=== PATIENT | female | born 1955 | race Caucasian/White ===

== ENCOUNTER 2017-01-19 10:34 | Observation (INO) | payer OTHER ==
[~2017-01-19] VITALS: Ht 160 cm; Wt 113.4 kg
[~2017-01-19 10:34] MED LIST: AMLO5TAB2 PO; ASPI-110 PO; CARV25TA PO; FURO1TAB60 PO; FURO20TA PO; LISI-515 PO; METO2.5T PO; PANT40TA3 PO; POTA10TA2 PO; PRAV20TA2 PO; STOO100C PO; VENTAER INH; VITA20003 PO; WARF-20 PO; WARF-22 PO
[2017-01-19] MEDS ORDERED: ceFAZolin 2 GM PREMIX 50 ML ONE (11:04)
[2017-01-19 11:33] LABS: AUTOMATED NEUTROPHIL # 5.8 TH/MM3 (1.8-7.7); BASOPHIL # 0.1 TH/MM3 (0-0.2); BASOPHIL % 1.3 % (0.0-2.0); EOSINOPHIL % 0.5 % (0.0-4.0); HEMATOCRIT 37.6 % (35.0-46.0); HEMO FLAGS DIFF FINAL; LYMPH % 21.2 % (9.0-44.0); LYMPHOCYTE # 1.8 TH/MM3 (1.0-4.8); MEAN CELL VOLUME 91.3 FL (80.0-100.0); MEAN CORPUSCULAR HEMOGLOBIN 31.5 PG (27.0-34.0); MEAN CORPUSCULAR HGB CONC 34.6 % (32.0-36.0); MONO % 7.3 % (0.0-8.0); NEUT % 69.7 % (16.0-70.0); PLATELET COUNT 277 TH/MM3 (150-450); RED BLOOD COUNT 4.11 MIL/MM3 (4.00-5.30); RED CELL DISTRIBUTION WIDTH 14.4 % (11.6-17.2); WHITE BLOOD COUNT 8.3 TH/MM3 (4.0-11.0)
[2017-01-19 11:58] LABS: POTASSIUM 3.9 MEQ/L (3.5-5.1)
[2017-01-19] MEDS ORDERED: LACTATED RINGER'S 1000 ML INJ 2,000 ML IV ONE (12:00)
[2017-01-19] MEDS ORDERED: NORMOSOL R INJ 1,000 ML IV ONE (12:00)
[2017-01-19] MEDS ORDERED: ONDANSETRON HCL 4 MG/2 ML VIAL IV PUSH ONE (12:00)
[2017-01-19] MEDS ORDERED: ETOMIDATE 20 MG/10 ML VIAL IV PUSH ONE (12:00)
[2017-01-19] MEDS ORDERED: ePHEDrine/NS 25 MG/5 ML SYR IV ONE (12:00)
[2017-01-19] MEDS ORDERED: PHENYLEPH/NS 1000 MCG/10 ML SYR IV ONE (12:00)
[2017-01-19 12:55] LABS: APTT (PATIENT) 26.1 SEC (24.3-30.1); INTERNATIONAL NORMALIZED RATIO 1.1 RATIO; PROTHROMBIN TIME - PATIENT 12.2 SEC (9.8-11.6)
[2017-01-19] MEDS ORDERED: LIDOCAINE 1%/EPINEPHrine 1:100,000 SOLN 30 ML VIAL ONE (13:03)
[2017-01-19] MEDS ORDERED: BUPIVACAINE/EPINEPHRINE 0.25% PF 30 ML VIAL ONE (13:03)
[2017-01-19] MEDS ORDERED: FAMOTIDINE 20 MG/2 ML VIAL ONE (13:11)
[2017-01-19] MEDS ORDERED: MIDAZOLAM HCL 2 MG/2 ML VIAL ONE (13:11)
[2017-01-19] MEDS ORDERED: DEXAMETHASONE SOD PHOS 4 MG/ML VIAL ONE (13:11)
[2017-01-19] MEDS ORDERED: SUGAMMADEX SODIUM 200 MG/2 ML VIAL IV PUSH ONE ×2 (15:01)
[2017-01-19] MEDS ORDERED: ACETAMINOPHEN 1000 MG/100 ML VIAL IV ONE (15:01)
--- NOTE | 2017-01-19 16:47 | HHI.PR ---
Immediate Post Op Note Procedure Date: Jan 19, 2017 Pre Op Diagnosis: incarcerated ventral hernia Post Op Diagnosis: same Surgeon: Lev Hackett MD Last Cleaner(s): see or sheet Procedure: laparoscopic robotic asst ventral hernia repair Findings: incarcerated omentum 3cm neck, large hernia defect 9x6cm Complications: none Specimen(s) removed: hernia sac Estimated blood loss: 15cc Anesthesia: General Drains: None IVF (1400cc) Patient to: PACU Patient Condition: Good Lev Hackett MD Jan 19, 2017 16:47
[2017-01-19] MEDS ORDERED: fentaNYL CITRATE 250 MCG/5 ML AMP ONE (16:57)
[2017-01-19] MEDS ORDERED: DO NOT ADM ANY ANTICOAGULANT DRUGS XX PRN (17:05)
[2017-01-19] MEDS ORDERED: ONDANSETRON HCL 4 MG/2 ML VIAL IV PUSH PRN (17:15)
[2017-01-19] MEDS ORDERED: oxyCODONE/ACETAMINOPHEN 5 MG/325 MG TAB PO PRN (17:15)
[2017-01-19] MEDS ORDERED: *morphine SULFATE 8 MG/ML PERIprocedure ONLY ONE ×2 (17:21→18:19)
[2017-01-19] MEDS ORDERED: SODIUM CHLOR 0.9% 1000 ML INJ 1,000 ML IV SCH (18:58)
--- NOTE | 2017-01-19 18:58 | EKG ---
Date Performed: 01/19/2017 Time Performed: 11:20:09 PTAGE: 61 years EKG: ATRIAL FIBRILLATION WITH ABERRANT CONDUCTION OR VENTRICULAR PREMATURE COMPLEXES INTRAVENTRI CULAR CONDUCTION DELAY LATERAL MYOCARDIAL INFARCTION , OF INDETERMINATE AGE INFERIOR MYOCARDIAL INFAR CTION , OF INDETERMINATE AGE ABNORMAL ECG PREVIOUS TRACING : 09/27/2016 15.33 DOCTOR: Misael Oneill Interpretating Date/Time 01/19/2017 18:56:41
[2017-01-19] MEDS ORDERED: KETOROLAC TROMETHAMINE 30 MG/ML (IVP) VIAL IVP PRN (19:00)
[2017-01-19] MEDS ORDERED: ONDANSETRON HCL 4 MG/2 ML VIAL IV PRN (19:00)
[2017-01-19] MEDS ORDERED: ACETAMINOPHEN/HYDROcodone 325 MG/5 MG TAB PO PRN (19:00)
[2017-01-19] MEDS ORDERED: SODIUM CHLORIDE 0.9% FLUSH 5 ML FLUSH IVF PRN (19:00)
[2017-01-19] MEDS ORDERED: MORPHINE SULFATE 4 MG/ML INJ IV PUSH PRN (19:00)
[2017-01-19] MEDS ORDERED: Post-op Orders (for Pharmacy) MISC XX ONE (19:00)
[2017-01-19 20:00] VITALS: BP 126/68; PULSE 78; RESP 20; TEMP 98.2; O2SAT 99
[2017-01-19] MEDS: ACETAMINOPHEN/HYDROcodone 325 MG/5 MG TAB PO PRN (20:41)
[2017-01-19] MEDS: DOCUSATE SODIUM 100 MG CAP PO SCH (20:42)
[2017-01-19] MEDS: SODIUM CHLORIDE 0.9% FLUSH 5 ML FLUSH IVF SCH (20:47)
[2017-01-19 22:23] VITALS: PULSE 94
[2017-01-20] VITALS: BP 132/88; PULSE 81; RESP 20; TEMP 97.6; O2SAT 97
[2017-01-20 06:31] LABS: AUTOMATED NEUTROPHIL # 9.3 TH/MM3 (1.8-7.7); BASOPHIL % 0.3 % (0.0-2.0); HEMATOCRIT 32.5 % (35.0-46.0); HEMO FLAGS DIFF FINAL; LYMPH % 10.6 % (9.0-44.0); LYMPHOCYTE # 1.2 TH/MM3 (1.0-4.8); MEAN CORPUSCULAR HEMOGLOBIN 32.2 PG (27.0-34.0); MEAN CORPUSCULAR HGB CONC 35.3 % (32.0-36.0); MONO % 7.2 % (0.0-8.0); NEUT % 81.9 % (16.0-70.0); PLATELET COUNT 232 TH/MM3 (150-450); RED BLOOD COUNT 3.57 MIL/MM3 (4.00-5.30); RED CELL DISTRIBUTION WIDTH 14.4 % (11.6-17.2); WHITE BLOOD COUNT 11.4 TH/MM3 (4.0-11.0)
[2017-01-20 07:00] LABS: BICARBONATE 28.7 MEQ/L (21.0-32.0); POTASSIUM 3.6 MEQ/L (3.5-5.1)
[2017-01-20 08:00] VITALS: BP 125/77; PULSE 77; RESP 17; TEMP 87.1; O2SAT 97
[2017-01-20 08:22] VITALS: O2SAT 96
[2017-01-20] MEDS: DOCUSATE SODIUM 100 MG CAP PO SCH (08:36)
[2017-01-20] MEDS: SODIUM CHLORIDE 0.9% FLUSH 5 ML FLUSH IVF SCH (08:37)
[2017-01-20] MEDS ORDERED: ALBUTEROL SULFATE 90 MCG/ACT HFA 8 GM INHALER INH PRN (10:15)
--- NOTE | 2017-01-20 10:25 | PD.CONS ---
[facility] Request[facility] By Reason for Consult medical management Primary Care Physician Non-Staff Diagnoses: History of Present Illness patient is a 61 y/o female with history of CHF, hypertension and atrial fibrillation who was admitted with incarcerated ventral hernia and underwent surgical repair. at the time of my evaluation she was resting in no acute distress, complaining of moderate abdominal pain with no nausea or vomiting. she denies any chest pain or respiratory distress. Review of Systems Constitutional: DENIES: Fever, Weight loss, Chills, Night Sweats Eyes: DENIES: Blurred vision, Diplopia, Vision loss, Double Vision Ears, nose, mouth, throat: DENIES: Tinnitus, Vertigo, Throat pain, Epistaxis Respiratory: DENIES: Apneas, Cough, Snoring, Wheezing, Hemoptysis, Sputum production, Shortness of breath Cardiovascular: DENIES: Chest pain, Palpitations, Syncope, Dyspnea on Exertion , PND, Lower Extremity Edema, Orthopnea, Claudication Gastrointestinal: COMPLAINS OF: Abdominal pain, DENIES: Black stools, Bloody stools, Constipation, Diarrhea, Nausea, Vomiting, Difficulty Swallowing, Anorexia Genitourinary: DENIES: Urinary frequency, Urgency, Hematuria, Dysuria Musculoskeletal: DENIES: Joint pain, Muscle aches, Stiffness, Joint Swelling Integumentary: DENIES: Rash Neurologic: DENIES: Abnormal gait, Headache, Localized weakness, Paresthesias, Seizures, Speech Problems, Tremor, Poor Balance Psychiatric: DENIES: Anxiety, Confusion, Mood changes, Depression, Hallucinations, Agitation, Suicidal Ideation, Homicidal Ideation, Delusions Past Family Social History Allergies: Coded Allergies: No Known Allergies (Verified , 01/19/17) Past Medical History CHF hypertension atrial fibrillation Past Surgical History cardiac cath. Reported Medications lasix Metolazone coreg lisinopril pravastatin cholecaliferol coumadin amlodipine protonix Active Ordered Medications Current Medications Cefazolin Sodium/ Dextrose (Ancef 2 Gm Premix) 50 ml @ As Directed STK-MED ONCE .ROUTE Last administered on 01/19/17 12:35; Start 01/19/17 at 11:04; Stop at 11:05; Status DC Lidocaine/ Epinephrine (Xylocaine-Epi 1%-1:100,000 Inj) 30 ml STK-MED ONCE .ROUTE Last administered on 3/1/17at 14:21; Start 01/19/17 at 13:03; Stop at 13:04; Status DC Bupivacaine HCl/ Epinephrine Bitart (Marcaine-Epi Pf 0.25% Inj) 30 ml STK-MED ONCE .ROUTE Last administered on 01/19/17t 14:21; Start 01/19/17 at 13:03; Stop 01/19/17 at 13:04; Status DC Famotidine (Pepcid Inj) 20 mg STK-MED ONCE .ROUTE ; Start 01/19/17 at 13:11; Stop 01/19/17 at 13:12; Status DC Midazolam HCl (Versed Inj) 2 mg STK-MED ONCE .ROUTE ; Start 01/19/17 at 13:11; Stop 01/19/17 at 13:12; Status DC Dexamethasone Sodium Phosphate (Decadron Inj) 4 mg STK-MED ONCE .ROUTE ; Start 01/19/17 at 13:11; Stop 01/19/17 at 13:12; Status DC Sugammadex Sodium (Bridion Inj) 400 mg STK-MED ONCE IV PUSH ; Start 01/19/17 at 15:01; Stop 01/19/17 at 15:02; Status DC Acetaminophen (Ofirmev Inj) 1,000 mg STK-MED ONCE IV ; Start 01/19/17 at 15:01; Stop 01/19/17 at 15:02; Status DC Fentanyl Citrate (fentaNYL INJ) 250 mcg STK-MED ONCE .ROUTE ; Start 01/19/17 at 16:57; Stop 01/19/17 at 16:58; Status DC Oxycodone/ Acetaminophen (Percocet 5-325 Mg) 2 tab ONCE PRN PO pain 1-5 scale ; Start 01/19/17 at 17:15; Stop 01/19/17 at 23:59; Status DC Ondansetron HCl (Zofran Inj) 4 mg ONCE PRN IV PUSH nausea; Start 01/19/17 at 17: 15; Stop 01/19/17 at 23:59; Status DC Morphine Sulfate (*morphine INJ PERIprocedure ONLY) 8 mg STK-MED ONCE .ROUTE Last administered on 01/19/17 17:21; Start 01/19/17 at 17:21; Stop 01/19/17 at 17: 22; Status DC Miscellaneous Information ALL NURSING DEPARTME... UNSCH PRN XX SEE LABEL COMMENTS; Start 01/19/17 at 17:05; Stop 01/20/17 at 17:04 Morphine Sulfate 8 mg 8 mg STK-MED ONCE .ROUTE Last administered on 01/19/17 18 :19; Start 01/19/17 at 18:19; Stop 01/19/17 at 18:20; Status DC Sodium Chloride (NS 1000 ml Inj) 1,000 ml @ 0 mls/hr Q10H IV ; Start 01/19/17 at 18:58 IV Flush (NS Flush) 2 ml UNSCH PRN IVF FLUSH AFTER USING IV ACCESS; Start at 19:00 IV Flush (NS Flush) 2 ml BID IVF Last administered on 01/20/17 08:37; Start 01/19/17 at 21:00 Ketorolac Tromethamine (Toradol Inj) 15 mg Q6H PRN IVP PAIN SCALE 1 TO 5 Last administered on 01/20/17 08:37; Start 01/19/17 at 19:00; Stop 01/24/17 at 18:59 Acetaminophen/ Hydrocodone Bitart (Ridgeway 5-325 Mg) 1 tab Q4H PRN PO PAIN SCALE 1 TO 5; Start 01/19/17 at 19:00 Acetaminophen/ Hydrocodone Bitart (Ridgeway 5-325 Mg) 2 tab Q4H PRN PO PAIN SCALE 6 TO 10 Last administered on 01/19/17 20:41; Start 01/19/17 at 19:00 Morphine Sulfate (Morphine Inj) 2 mg Q2H PRN IV PUSH BREAKTHROUGH PAIN; Start 01/19/17 at 19:00 Ondansetron HCl (Zofran Inj) 4 mg Q4H PRN IV NAUSEA OR VOMITING; Start 01/19/17 at 19:00 Docusate Sodium 100 mg 100 mg BID PO Last administered on 01/20/17 08:36; Start 01/19/17 at 21:00 Cefazolin Sodium/ Sodium Chloride (Ancef Inj/NS Inj) 100 ml @ 200 mls/hr Q8H IV Last administered on 01/20/17 04:55; Start 01/19/17 at 20:00; Stop 01/20/17 at 12:29 Miscellaneous Information (Post-op Orders (for Pharmacy)) STAT ONCE XX ; Start 01/19/17 at 19:00; Stop 01/19/17 at 19:11; Status DC Family History CAD in sister. Social History no smoking or drinking. Physical Exam Vital Signs Vital Signs Date Time Temp Pulse Resp B/P Pulse Ox O2 Delivery O2 Flow Rate FiO2 01/20/17 09:37 17 01/20/17 08:33 Room Air 01/20/17 08:22 96 01/20/17 08:00 87.1 77 17 125/77 97 01/20/17 00:00 97.6 81 20 132/88 97 01/19/17 22:23 94 01/19/17 20:31 99 Nasal Cannula 2.00 01/19/17 20:00 97 18 113/71 99 Nasal Cannula 2 01/19/17 20:00 98.2 78 20 126/68 99 01/19/17 19:30 90 18 112/74 99 Nasal Cannula 2 01/19/17 19:00 97 22 118/76 97 Nasal Cannula 2 01/19/17 18:45 92 22 121/80 98 Nasal Cannula 2 01/19/17 18:30 98 22 117/84 99 Nasal Cannula 2 01/19/17 18:15 89 22 122/82 99 Nasal Cannula 2 01/19/17 18:00 88 22 119/80 99 Nasal Cannula 2 01/19/17 17:45 101 22 119/73 99 Nasal Cannula 2 01/19/17 17:30 96 22 120/77 99 Nasal Cannula 2 01/19/17 17:05 98.8 95 22 114/67 97 Nasal Cannula 4 Physical Exam GENERAL: This is a well-nourished, well-developed patient, in no apparent distress. SKIN: No rashes, ecchymoses or lesions. Cool and dry. HEAD: Atraumatic. Normocephalic. No temporal or scalp tenderness. EYES: Pupils equal round and reactive. Extraocular motions intact. No scleral icterus. No injection or drainage. ENT: Nose without bleeding, purulent drainage or septal hematoma. Throat without erythema, tonsillar hypertrophy or exudate. Uvula midline. Airway patent. NECK: Trachea midline. No JVD or lymphadenopathy. Supple, nontender, no meningeal signs. CARDIOVASCULAR: Regular rate and rhythm without murmurs, gallops, or rubs. RESPIRATORY: Clear to auscultation. Breath sounds equal bilaterally. No wheezes , rales, or rhonchi. GASTROINTESTINAL: Abdomen soft, non-tender, covered with clean dressing. MUSCULOSKELETAL: Extremities without clubbing, cyanosis, or edema. No joint tenderness, effusion, or edema noted. No calf tenderness. Negative Homans sign bilaterally. NEUROLOGICAL: Awake and alert. Cranial nerves II through XII intact. Motor and sensory grossly within normal limits. Five out of 5 muscle strength in all muscle groups. Normal speech. Laboratory Laboratory Tests Test 01/19/17 01/19/17 01/19/17 01/20/17 11:15 12:34 14:08 05:28 White Blood Count 8.3 11.4 Red Blood Count 4.11 3.57 Hemoglobin 13.0 11.5 Hematocrit 37.6 32.5 Mean Corpuscular Volume 91.3 91.0 Mean Corpuscular Hemoglobin 31.5 32.2 Mean Corpuscular Hemoglobin 34.6 35.3 Concent Red Cell Distribution Width 14.4 14.4 Platelet Count 277 232 Mean Platelet Volume 8.4 8.6 Neutrophils (%) (Auto) 69.7 81.9 Lymphocytes (%) (Auto) 21.2 10.6 Monocytes (%) (Auto) 7.3 7.2 Eosinophils (%) (Auto) 0.5 0.0 Basophils (%) (Auto) 1.3 0.3 Neutrophils # (Auto) 5.8 9.3 Lymphocytes # (Auto) 1.8 1.2 Monocytes # (Auto) 0.6 0.8 Eosinophils # (Auto) 0.0 0.0 Basophils # (Auto) 0.1 0.0 CBC Comment DIFF FINAL DIFF FINAL Differential Comment Sodium Level 138 140 Potassium Level 3.9 3.6 Chloride Level 101 101 Carbon Dioxide Level 29.0 28.7 Anion Gap 8 10 Blood Urea Nitrogen 50 44 Creatinine 1.57 1.53 Estimat Glomerular Filtration 34 35 Rate Random Glucose 111 95 Calcium Level 9.4 8.7 Prothrombin Time 12.2 Prothromb Time International 1.1 Ratio Activated Partial 26.1 Thromboplast Time Blood Type O POSITIVE Antibody Screen NEGATIVE Blood Bank Comment Result Diagram: 01/20/1728 01/20/17527 Imaging EKG; atrial fibrillation Assessment and Plan Assessment and Plan A/P - incarcerated Ventral hernia- s/p surgical repair continue pain control- management per surgery. -CHF-chronic systolic- compensated; continue home meds; lasix, BB and lisinopril -hypertension; resume home meds; BB, lisinopril - hold amlodipine for now -atrial fibrillation- rate controlled- resume BB- resume coumadin when ok with surgery -chronic renal insufficiency; will monitor - -DVT prophylaxis; per surgery; resume coumadin when ok with surgery. thank you for the consult. Discussed Condition With the patient and the RN. Cinthia Gonzalez MD Jan 20, 2017 10:25
[2017-01-20] MEDS: ACETAMINOPHEN/HYDROcodone 325 MG/5 MG TAB PO PRN ×3 (10:29→18:55)
[2017-01-20 12:00] VITALS: BP 105/53; PULSE 91; RESP 17; TEMP 99.2; O2SAT 94
[2017-01-20 16:00] VITALS: BP 118/68; PULSE 97; RESP 17; TEMP 97.2; O2SAT 90
[2017-01-20 16:02] VITALS: RESP 16
--- NOTE | 2017-01-20 16:32 | HHI.PR ---
Subjective Subjective Notes Resting in bed Feels hungry Objective Vitals/I&O Vital Signs Date Time Temp Pulse Resp B/P Pulse Ox O2 Delivery O2 Flow Rate FiO2 01/20/17 16:02 16 01/20/17 16:00 97.2 97 118/68 90 01/20/17 08:33 Room Air 01/19/17 20:31 2.00 Labs Laboratory Tests Test 01/20/17 05:28 White Blood Count 11.4 Red Blood Count 3.57 Hemoglobin 11.5 Hematocrit 32.5 Mean Corpuscular Volume 91.0 Mean Corpuscular Hemoglobin 32.2 Mean Corpuscular Hemoglobin 35.3 Concent Red Cell Distribution Width 14.4 Platelet Count 232 Mean Platelet Volume 8.6 Neutrophils (%) (Auto) 81.9 Lymphocytes (%) (Auto) 10.6 Monocytes (%) (Auto) 7.2 Eosinophils (%) (Auto) 0.0 Basophils (%) (Auto) 0.3 Neutrophils # (Auto) 9.3 Lymphocytes # (Auto) 1.2 Monocytes # (Auto) 0.8 Eosinophils # (Auto) 0.0 Basophils # (Auto) 0.0 CBC Comment DIFF FINAL Differential Comment Sodium Level 140 Potassium Level 3.6 Chloride Level 101 Carbon Dioxide Level 28.7 Anion Gap 10 Blood Urea Nitrogen 44 Creatinine 1.53 Estimat Glomerular Filtration 35 Rate Random Glucose 95 Calcium Level 8.7 Cardiovascular: Regular Lungs: Clear Abdomen: Other (obese abdomen; robotic lap sites c/d/i ; tender at incision sites ) Extremities: No edema A/P Assessment and Plan 61 year old female POD1 robotic ventral hernia repair -Start regular diet -OOB and mobilize -Pain control -Abd binder Attending Statement pt seen at bedside c/o pain but better with meds no fevers oob reg diet d/c planning Attestation The exam, history, and the medical decision-making described in the above note were completed with the assistance of the mid-level provider. I reviewed and agree with the findings presented. I attest that I had a [id number] encounter with the patient on the same day, and personally performed and documented my assessment and findings in the medical record. Mili Mcdowell Jan 20, 2017 16:32 Lev Hackett MD Feb 01, 2017 05:25
[2017-01-20] MEDS ORDERED: POTASSIUM CHLORIDE 10 MEQ CONTROLLED RELEASE TAB PO SCH (21:00)
[2017-01-20] MEDS ORDERED: PRAVASTATIN SOD 20 MG TAB PO SCH (21:00)
[2017-01-20] MEDS ORDERED: CARVEDILOL 3.125 MG TAB PO SCH (21:00)
[2017-01-20] MEDS ORDERED: FUROSEMIDE 20 MG TAB PO SCH (21:00)
[2017-01-21] MEDS ORDERED: LISINOPRIL 5 MG TAB PO SCH (09:00)
[2017-01-21] MEDS ORDERED: FUROSEMIDE 40 MG TAB PO SCH (09:00)
--- NOTE | 2017-01-26 10:35 | MP ---
cc: NAOMI HACKETT MD DATE OF SURGERY: 01/19/2017 PREOPERATIVE DIAGNOSIS Incarcerated ventral hernia. POSTOPERATIVE DIAGNOSIS Incarcerated ventral hernia. PROCEDURE PERFORMED Laparoscopic robotic-assisted ventral hernia repair with underlay mesh. SURGEON Dr. Naomi Hackett INVENTORY CONTROL CLERK See OR sheet ANESTHESIA General endotracheal. IV FLUIDS 1400 cc. URINE OUTPUT 950 cc. ESTIMATED BLOOD LOSS 15 cc. DRAINS None. COMPLICATIONS None. WOUND CLASSIFICATION Clean. FINDINGS Incarcerated ventral hernia with omentum. Good hemostasis. SPECIMEN Hernia sac. INDICATION The patient is a 61-year-old female with several medical issues and obesity who presents with chronic longstanding ventral hernia that was incarcerated with omentum. The patient complained of increased pain and some distension. CT evaluation showing a 3 cm neck x large hernia defect approximately 9 x 6 cm hernia. The decision was made for operative intervention including laparoscopic robotic repair of incisional hernia. Discussed with the patient in detail. The patient agreed and would like to proceed. DETAILS OF PROCEDURE The patient was taken to the operating suite, placed in supine position. She was prepped and draped in the usual sterile fashion after induction of general endotracheal anesthesia. A brief timeout was done stating the correct patient, procedure and surgical site. The patient was positioned. The bed was reclined approximately 10 degrees. The right arm was tucked and secured with a knee immobilizer. Attention was directed to the right upper quadrant. A small stab katheryn incision was made with an 11 blade. A Veress needle obtained was placed intra-abdominally. Saline drop test confirmed intra-abdominal placement. The abdomen was insufflated to 15 mmHg pneumoperitoneum. The Veress needle was traded for a 5 mm trocar. The 5 mm trocar was introduced. On cursory inspection there was no evidence of injury. There was noted to be isolated incarcerated ventral hernia with omentum contained within the hernia sac. Two other trocars were placed, one 12 mm right-sided port followed by a right lower quadrant 8 mm port. The 5 mm port was traded for an 8 mm right upper quadrant port and the robot arms were docked. With the use of bipolar and monopolar endoshears the falciform was taken down. This was done for adequate purchase of mesh. The hernia sac was then reduced. Gentle traction was done to the omentum and Bovie cautery was used to serially dissect and bring the omentum back intra-abdominally. Once we did this and were satisfied with this attention was directed to the hernia sac itself. The hernia sac was completely dissected out and was looped as well. The hernia sac and a small piece of omentum were removed and sent for pathology. Next, the primary hernia defect was then closed in a running fashion with a #1 V-Loc H&H suture. This was done in two layers. After good apposition the pneumoperitoneum was decreased down to 11 mmHg. Next, a Parietex mesh was obtained, 15 x 10 cm, in order to give appropriate overlap and overlay and adequate measurements. The Parietex mesh was secured and a running 12 inch Stratafix 2-0 was used with an SH needle. One 12 inch and two of the smaller length Stratafix were used for a total of three to use around the perimeter of the Parietex mesh. The Parietex mesh was DualMesh. Once we were satisfied with this and the mesh lay flat in place completely covering the hernia defect, hemostasis was obtained. The abdomen was then desufflated. Trocars were removed. The 12 mm trocar was closed prior to removal of the total pneumoperitoneum with a Jey-Lyric suture closure device with 0 Vicryl suture. Next, local anesthetic was injected at all port sites. The port sites were closed with Monocryl subcuticular sutures. Next, sterile dressings were placed. An abdominal binder was placed. The patient tolerated the procedure well. There were no intraoperative complications. Prior to completion the robot arms were undocked of course. Lap and instrument counts were correct. The patient was extubated and taken stable to the PACU. MD KAROLYN Dumont/JACK /6:47 PM /10:09 AM RODERICK
== END 2017-01-20 19:27 | disposition home or self-care (01) ==
LOC: HSDC 10:34 → HSDI 19:01 → N07A 20:16
PROVIDERS: ADMIT Surgery; ATTEND Surgery
DX: K43.6 Other and unspecified ventral hernia with obstruction, without gangrene (principal); I50.9 Heart failure, unspecified; I48.91 Unspecified atrial fibrillation; N18.9 Chronic kidney disease, unspecified; Z79.01 Long term (current) use of anticoagulants; E66.9 Obesity, unspecified; I12.9 Hypertensive chronic kidney disease with stage 1 through stage 4 chronic kidney disease, or unspecified chronic kidney disease
CPT/HCPCS: 00752; 49653; 80048; 85025; 85610; 85730; 86850; 86900; 86901; 88302; 93005; 94150; G0378; J0131; J0690; J1100; J1885; J2250; J2270; J2370; J2405; J3010; J7120

== ENCOUNTER 2017-01-29 07:20 | Inpatient (IN) | payer OTHER, MEDICARE ==
[~2017-01-29] VITALS: Ht 160 cm; Wt 111.6 kg
[2017-01-29 07:25] VITALS: BP 170/92; PULSE 88; RESP 20; TEMP 97.9; O2SAT 94
[2017-01-29 07:49] VITALS: BP 125/60; PULSE 99; RESP 16; O2SAT 96
--- NOTE | 2017-01-29 08:00 | PD ---
HPI Chief Complaint: GI Complaint Time Seen by Provider: 07:54 Travel History International Travel<30 days: No Contact w/Intl Traveler<30days: No Traveled to known affect area: No History of Present Illness HPI 61-year-old female with history of CHF, A. fib, on Coumadin, had umbilical hernia repair done by Dr. Hackett 10 days ago, presents to the ER today because she states that last night she started having dark blood in her stools, and has been having nausea. She states that she was concerned because she is on Coumadin. She has had no history of GI bleeding in the past. She denies any chest pains, shortness of breath, abdominal pains, or any other symptoms. Modifying Factors: None Associated Signs & Symptoms: Blood in the stools, on Coumadin Risk Factors: On Coumadin, recent surgery PFSH Past Medical History Hx Anticoagulant Therapy: Yes (Warfarin) Arthritis: Yes Asthma: Yes Autoimmune Disease: No Blood Disorders: No Anxiety: No Depression: No Cancer: No Cardiac Catheterization: Yes (OCT 2011, NO STENT) Cardiovascular Problems: Yes Chemotherapy: No Congestive Heart Failure: Yes Cerebrovascular Accident: No Diabetes: No Diminished Hearing: No Endocrine: No Gastrointestinal Disorders: Yes Genitourinary: Yes (STRESS INCONTINENCE) Hiatal Hernia: No Hypertension: Yes Immune Disorder: No Neurologic: No Psychiatric: No Reproductive: No Respiratory: No Immunizations Current: Yes Thyroid Disease: No Tetanus Vaccination: Unknown Menopausal: Yes Past Surgical History Abdominal Surgery: Yes (INCARCERATED VENTRAL HERNIA 01/19/17) AICD: No Arteriovenous Shunt: No Hysterectomy: No Insulin Pump: No Joint Replacement: No Pacemaker: No Thoracic Surgery: No Social History Alcohol Use: No Tobacco Use: No Substance Use: No Allergies-Medications (Allergen,Severity, Reaction): Coded Allergies: No Known Allergies (Verified , 01/29/17) Reported Meds & Prescriptions Reported Meds & Active Scripts Active Carvedilol 25 Mg Tab 25 Mg PO TID Reported Metolazone 2.5 Mg Tab 2.5 Mg PO DAILY Furosemide 20 Mg Tab 20 Mg PO HS Warfarin 10 Mg Tab 7 Mg PO WED Warfarin 4 Mg Tab 8 Mg PO ,, Vitamin D (Cholecalciferol) 2,000 Unit Tab 2,000 Units PO DAILY Stool Softener (Docusate Sodium) 100 Mg Cap 100 Mg PO HS Aspirin 81 (Aspirin) 81 Mg Tabdr 81 Mg PO DAILY Ventolin Hfa 18 GM Inh (Albuterol Sulfate) 90 Mcg/Act Aer 1-2 Puff INH Q4H PRN Amlodipine (Amlodipine Besylate) 5 Mg Tab 2.5 Mg PO BID Lasix (Furosemide) 40 Mg Tab 40 Mg PO DAILY Lisinopril 20 Mg Tab 20 Mg PO BID Pantoprazole (Pantoprazole Sodium) 40 Mg Tab 40 Mg PO DAILY Potassium Chloride ER (Potassium Chloride) 10 Meq Tab 10 Meq PO BID Pravastatin 20 Mg Tab 20 Mg PO DAILY Review of Systems Except as stated in HPI: all other systems reviewed are Neg Physical Exam Narrative GENERAL: Well-developed elderly white female patient not in acute distress. Awake, alert, oriented 3. SKIN: Warm and dry. HEAD: Atraumatic. Normocephalic. EYES: Pupils equal and round. No scleral icterus. No injection or drainage. ENT: No nasal bleeding or discharge. Mucous membranes pink and moist. NECK: Trachea midline. No JVD. CARDIOVASCULAR: Regular rate and rhythm. No murmur appreciated. RESPIRATORY: No accessory muscle use. Clear to auscultation. Breath sounds equal bilaterally. GASTROINTESTINAL: Abdomen soft, obese, non-tender, nondistended. Hepatic and splenic margins not palpable. Laparoscopic incisions look clean, dry, intact. RECTAL EXAM: No masses or tenderness, stool is dark brown, Hemoccult positive. MUSCULOSKELETAL: No obvious deformities. No clubbing. No cyanosis. No edema. NEUROLOGICAL: Awake and alert. No obvious cranial nerve deficits. Motor grossly within normal limits. Normal speech. PSYCHIATRIC: Appropriate mood and affect; insight and judgment normal. Data Data Last Documented VS Vital Signs Date Time Temp Pulse Resp B/P Pulse Ox O2 Delivery O2 Flow Rate FiO2 01/29/17 09:00 88 16 120/80 100 Room Air 01/29/17 07:25 97.9 Orders Complete Blood Count With Diff (01/29/17 07:44) Basic Metabolic Panel (Bmp) (01/29/17 07:44) Prothrombin Time / Inr (Pt) (01/29/17 07:44) Act Partial Throm Time (Ptt) (01/29/17 07:44) Albuterol Hfa Inh (Proair Hfa Inh) (01/29/17 09:30) Carvedilol (Coreg) (01/29/17 13:00) Docusate Sodium (Colace) (01/29/17 21:00) Pravastatin (Pravachol) (01/30/17 09:00) Place In Observation (01/29/17 ) Vital Signs (Adult) Q4H (01/29/17:27) Activity Oob With Assistance (01/29/17:) Artificial Breast Fabricator / Telemetry .CONTINUOUS (01/29/17:) Intake + Output ARTI.QSHIFT (01/29/17:) Diet Clear Liquid (01/29/17 Breakfast) Sodium Chlor 0.9% 1000 Ml Inj (Ns 1000 M (01/29/17:27) Sodium Chloride 0.9% Flush (Ns Flush) (01/29/17:30) Sodium Chloride 0.9% Flush (Ns Flush) (01/29/17 21:00) Acetaminophen (Tylenol) (01/29/17 09:30) Ondansetron Inj (Zofran Inj) (01/29/17 09:30) Bisacodyl Supp (Dulcolax Supp) (01/29/17 09:30) Sennosides (Senokot) (01/29/17 09:30) Basic Metabolic Panel (Bmp) (01/30/17 06:00) Complete Blood Count With Diff (01/30/17 06:00) Prothrombin Time / Inr (Pt) (01/30/17 06:00) Resp Oxygen Negro C Titrat 1-4 L (01/29/17 ) Case Management Consult (01/29/17:) Scd Bilateral/Knee High ARTI.BID (01/29/17:) Acetaminophen (Tylenol) (01/29/17 09:30) Naloxone Inj (Narcan Inj) (01/29/17 09:30) Admit Order (Ed Use Only) (01/29/17 09:29) Labs Laboratory Tests Test 01/29/17 07:55 White Blood Count 7.0 TH/MM3 Red Blood Count 3.68 MIL/MM3 Hemoglobin 12.0 GM/DL Hematocrit 34.8 % Mean Corpuscular Volume 94.4 FL Mean Corpuscular Hemoglobin 32.6 PG Mean Corpuscular Hemoglobin 34.6 % Concent Red Cell Distribution Width 14.4 % Platelet Count 271 TH/MM3 Mean Platelet Volume 8.5 FL Neutrophils (%) (Auto) 66.8 % Lymphocytes (%) (Auto) 21.2 % Monocytes (%) (Auto) 8.0 % Eosinophils (%) (Auto) 3.3 % Basophils (%) (Auto) 0.7 % Neutrophils # (Auto) 4.7 TH/MM3 Lymphocytes # (Auto) 1.5 TH/MM3 Monocytes # (Auto) 0.6 TH/MM3 Eosinophils # (Auto) 0.2 TH/MM3 Basophils # (Auto) 0.1 TH/MM3 CBC Comment DIFF FINAL Differential Comment Prothrombin Time 20.1 SEC Prothromb Time International 1.8 RATIO Ratio Activated Partial 31.5 SEC Thromboplast Time Sodium Level 137 MEQ/L Potassium Level 3.8 MEQ/L Chloride Level 99 MEQ/L Carbon Dioxide Level 28.3 MEQ/L Anion Gap 10 MEQ/L Blood Urea Nitrogen 76 MG/DL Creatinine 2.65 MG/DL Estimat Glomerular Filtration 18 ML/MIN Rate Random Glucose 105 MG/DL Calcium Level 9.2 MG/DL [facility] Medical Decision Making Medical Screen Exam Complete: Yes Emergency Medical Condition: Yes Medical Record Reviewed: Yes Interpretation(s) Laboratory Tests Test 01/29/17 07:55 Red Blood Count 3.68 MIL/MM3 (4.00-5.30) Hematocrit 34.8 % (35.0-46.0) Prothrombin Time 20.1 SEC (9.8-11.6) Activated Partial 31.5 SEC Thromboplast Time (24.3-30.1) Blood Urea Nitrogen 76 MG/DL (7-18) Creatinine 2.65 MG/DL (0.50-1.00) Estimat Glomerular Filtration 18 ML/MIN (>89) Rate Differential Diagnosis Hemorrhoidal bleeding versus GI bleeding versus coagulopathy rule out anemia Narrative Course H&H is stable. Vital signs are stable. She is having GI bleeding. INR is elevated. Protonix was given in the ER. Case is discussed with Dr. Aguilar for admission. [facility] Point of Care Internal Pos. & Neg. Controls: Passed Fecal Specimen Occult Blood: Positive Diagnosis Primary Impression: GI bleed Admitting Information Admitting Physician Requests: Admit Amy Atkins MD Jan 29, 2017 08:00
[2017-01-29 08:10] LABS: AUTOMATED NEUTROPHIL # 4.7 TH/MM3 (1.8-7.7); BASOPHIL # 0.1 TH/MM3 (0-0.2); BASOPHIL % 0.7 % (0.0-2.0); EOSINOPHIL # 0.2 TH/MM3 (0-0.4); EOSINOPHIL % 3.3 % (0.0-4.0); HEMATOCRIT 34.8 % (35.0-46.0); HEMO FLAGS DIFF FINAL; LYMPH % 21.2 % (9.0-44.0); LYMPHOCYTE # 1.5 TH/MM3 (1.0-4.8); MEAN CELL VOLUME 94.4 FL (80.0-100.0); MEAN CORPUSCULAR HEMOGLOBIN 32.6 PG (27.0-34.0); MEAN CORPUSCULAR HGB CONC 34.6 % (32.0-36.0); NEUT % 66.8 % (16.0-70.0); PLATELET COUNT 271 TH/MM3 (150-450); RED BLOOD COUNT 3.68 MIL/MM3 (4.00-5.30); RED CELL DISTRIBUTION WIDTH 14.4 % (11.6-17.2)
[2017-01-29 08:21] LABS: APTT (PATIENT) 31.5 SEC (24.3-30.1); INTERNATIONAL NORMALIZED RATIO 1.8 RATIO; PROTHROMBIN TIME - PATIENT 20.1 SEC (9.8-11.6)
[2017-01-29 08:31] LABS: BICARBONATE 28.3 MEQ/L (21.0-32.0); POTASSIUM 3.8 MEQ/L (3.5-5.1)
[2017-01-29 09:00] VITALS: BP 120/80; PULSE 88; RESP 16; O2SAT 100
[2017-01-29] MEDS ORDERED: BISACODYL 10 MG SUPP PR PRN (09:30)
[2017-01-29] MEDS ORDERED: ALBUTEROL SULFATE 90 MCG/ACT HFA 8 GM INHALER INH PRN (09:30)
[2017-01-29] MEDS ORDERED: PANTOPRAZOLE SODIUM 40 MG VIAL IV PUSH ONE (09:30)
[2017-01-29] MEDS ORDERED: NALOXONE HCL 0.4 MG/ML AMP IV PRN (09:30)
[2017-01-29] MEDS ORDERED: ACETAMINOPHEN 325 MG TAB PO PRN (09:30)
[2017-01-29] MEDS ORDERED: SODIUM CHLORIDE 0.9% FLUSH 5 ML FLUSH FLUSH PRN (09:30)
[2017-01-29] MEDS ORDERED: SENNOSIDES 8.6 MG TAB PO PRN (09:30)
[2017-01-29] MEDS ORDERED: ACETAMINOPHEN/HYDROcodone 325 MG/5 MG TAB PO PRN (10:00)
[2017-01-29] MEDS ORDERED: LACTULOSE SYRUP 20 GM/30 ML CUP PO PRN (10:00)
[2017-01-29] MEDS ORDERED: MORPHINE SULFATE 4 MG/ML INJ IV PRN (10:00)
[2017-01-29] MEDS ORDERED: ACETAMINOPHEN/HYDROcodone 325 MG/7.5 MG TAB PO PRN (10:00)
[2017-01-29] MEDS: SODIUM CHLOR 0.9% 1000 ML INJ 1,000 ML IV SCH ×2 (10:07→21:12)
--- NOTE | 2017-01-29 10:08 | HHI.HP ---
[facility] Service [facility] ([place], [place])ists Primary Care Physician Non-Staff Admission Diagnosis GI bleed/on Coumadin Diagnoses: Chief Complaint: GI bleed Travel History International Travel<30 Days: No Contact w/Intl Traveler <30 Da: No Traveled to Known Affected Are: No History of Present Illness 61-year-old female with past medical history CHF, A. fib on anticoagulation, HTN , HLD, GERD, OA, asthma who presented for GI bleeding. The patient had a recent umbilical hernia repair with Dr. Hackett. She has been dealing with constipation since then. She states that last night she began having dark stools. She states that the toilet bowl was full of black stool. She denies any bright red stool. Per ED report, patient had maroon Hemoccult-positive stool. The patient is having abdominal soreness since the surgery, denies any acute worsening. She states that this morning she was feeling a little dizzy and lightheaded. She denies any weakness or chest pain. She does take an aspirin every day, denies any other NSAID use. She reports normal urine output. She had a screening colonoscopy November [address] Garcia. Review of Systems Except as stated in HPI: all other systems reviewed are Neg Past Family Social History Past Medical History Systolic CHF Atrial Fibrillation on Coumadin Hypertension Hyperlipidemia GERD Arthritis Asthma Past Surgical History Umbilical hernia repair Cardiac catheterization Colonoscopy 12/06 Reported Medications Carvedilol 25 Mg Tab 25 Mg PO TID Metolazone 2.5 Mg Tab 2.5 Mg PO DAILY Furosemide 20 Mg Tab 20 Mg PO HS Warfarin 10 Mg Tab 7 Mg PO WED Warfarin 4 Mg Tab 8 Mg PO T,W, Vitamin D (Cholecalciferol) 2,000 Unit Tab 2,000 Units PO DAILY Stool Softener (Docusate Sodium) 100 Mg Cap 100 Mg PO HS Aspirin 81 (Aspirin) 81 Mg Tabdr 81 Mg PO DAILY Ventolin Hfa 18 GM Inh (Albuterol Sulfate) 90 Mcg/Act Aer 1-2 Puff INH Q4H PRN Amlodipine (Amlodipine Besylate) 5 Mg Tab 2.5 Mg PO BID Lasix (Furosemide) 40 Mg Tab 40 Mg PO DAILY Lisinopril 20 Mg Tab 20 Mg PO BID Pantoprazole (Pantoprazole Sodium) 40 Mg Tab 40 Mg PO DAILY Potassium Chloride ER (Potassium Chloride) 10 Meq Tab 10 Meq PO BID Pravastatin 20 Mg Tab 20 Mg PO DAILY Allergies: Coded Allergies: No Known Allergies (Verified , 01/29/17) Active Ordered Medications Current Medications Medications (Trade) Dose Ordered Sig/Margarito Route Start Time Stop Time Status Last Admin (Proair Hfa Inh) 2 puff Q4H PRN INH 01/29/17 09:30 UNV (Coreg) 12.5 mg TID PO 01/29/17 13:00 UNV (Colace) 100 mg HS PO 01/29/17 21:00 UNV Pravastatin Sodium 20 mg 20 mg DAILY PO 01/30/17 09:00 UNV (NS 1000 ml Inj) 1,000 ml @ 70 mls/hr [id number] IV 01/29/17 09:27 UNV (NS Flush) 2 ml UNSCH PRN FLUSH 01/29/17 09:30 (NS Flush) 2 ml BID FLUSH 01/29/17 21:00 UNV (Tylenol) 650 mg Q4H PRN PO 01/29/17 09:30 UNV (Zofran Inj) 4 mg Q6H PRN IVP 01/29/17 09:30 UNV (Dulcolax Supp) 10 mg DAILY PRN TN 01/29/17 09:30 UNV (Senokot) 17.2 mg Q12H PRN PO 01/29/17 09:30 UNV (Tylenol) 650 mg Q6H PRN PO 01/29/17 09:30 UNV (Narcan Inj) 0.4 mg UNSCH PRN IV 01/29/17 09:30 UNV (Protonix Inj) 40 mg Q24H IV PUSH 01/30/17 10:00 Family History Heart disease and colon cancer in the patient's sister Social History Denies alcohol or tobacco use Physical Exam Vital Signs Vital Signs Date Time Temp Pulse Resp B/P Pulse Ox O2 Delivery O2 Flow Rate FiO2 01/29/17 09:00 88 16 120/80 100 Room Air 01/29/17 07:50 16 01/29/17 07:49 99 16 125/60 96 Room Air 01/29/17 07:25 97.9 88 20 170/92 94 Room Air Physical Exam GENERAL: Well-developed well-nourished. Morbidly obese. In no acute distress. SKIN: Warm and dry. Small area of fungal-appearing rash below the umbilicus. HEENT: Normocephalic. Pupils equal and round. Mucous membranes pink and moist. CARDIOVASCULAR: Irregular rate and rhythm. No murmur appreciated. RESPIRATORY: No accessory muscle use. Clear to auscultation. Breath sounds equal bilaterally. GASTROINTESTINAL: Abdomen soft, non-tender, nondistended. Bowel sounds x4. Post surgical incisions clean and intact. MUSCULOSKELETAL: No obvious deformities. No clubbing or cyanosis. No edema. NEUROLOGICAL: Awake and alert. No focal neurological deficits. Moves upper and lower extremities spontaneously. Normal speech. PSYCHIATRIC: Appropriate mood and affect; insight and judgment normal. Laboratory Laboratory Tests Test 01/29/17 07:55 White Blood Count 7.0 Red Blood Count 3.68 Hemoglobin 12.0 Hematocrit 34.8 Mean Corpuscular Volume 94.4 Mean Corpuscular Hemoglobin 32.6 Mean Corpuscular Hemoglobin 34.6 Concent Red Cell Distribution Width 14.4 Platelet Count 271 Mean Platelet Volume 8.5 Neutrophils (%) (Auto) 66.8 Lymphocytes (%) (Auto) 21.2 Monocytes (%) (Auto) 8.0 Eosinophils (%) (Auto) 3.3 Basophils (%) (Auto) 0.7 Neutrophils # (Auto) 4.7 Lymphocytes # (Auto) 1.5 Monocytes # (Auto) 0.6 Eosinophils # (Auto) 0.2 Basophils # (Auto) 0.1 CBC Comment DIFF FINAL Differential Comment Prothrombin Time 20.1 Prothromb Time International 1.8 Ratio Activated Partial 31.5 Thromboplast Time Sodium Level 137 Potassium Level 3.8 Chloride Level 99 Carbon Dioxide Level 28.3 Anion Gap 10 Blood Urea Nitrogen 76 Creatinine 2.65 Estimat Glomerular Filtration 18 Rate Random Glucose 105 Calcium Level 9.2 Result Diagram: 01/29/17 0755 01/29/17 0755 Assessment and Plan Assessment and Plan 61-year-old female with past medical history CHF, A. fib on anticoagulation, HTN , HLD, GERD, OA, asthma who presented for GI bleeding GI bleed: Hemoccult positive in the ED. On Coumadin with INR at 1.8, hold. Hemoglobin 12.0, previously 11.5 on 01/20/17. Monitor H&H, transfuse if indicated. Consult patient's crisis mental health therapist. Clear liquids. Protonix. Gentle IVF with CHF. Stool softeners with constipation. RUBY on CKD: Creatinine 2.65, previously 1.53 on 01/20/17. Secondary to anemia vs overdiuresis. Hold home diuretics. Cautious IVF. Monitor volume status, intake and output, and BMP. Atrial fibrillation on anticoagulation: On Coumadin at home, hold with bleeding as above. INR subtherapeutic at 1.8, monitor INR. Continue carvedilol for rate control. Likely no need for aspirin and Coumadin especially with GI bleeding, and discontinue aspirin. Monitor on telemetry. Chronic systolic CHF: EF 20% on cardiac catheterization last year. Patient refused AICD. Hold diuretics and lisinopril with RUBY. Continue carvedilol. S/P recent umbilical hernia repair: D/W Dr. Caballero, covering for Dr. Hackett. DVT prophylaxis: Coumadin as above. SCDs. Written by Dani Rosenthal, acting as scribe for Dr. Aguilar on 01/29/17 at 10:07. All or portions of this note were transcribed by scribe []. I, Dr. Amandeep Aguilar personally performed the history, physical exam, and medical decision making; and confirmed the accuracy of the information in the transcribed note. Authenticated by Dr. Amandeep Aguilar on 01/29/17 at 14:10. Code Status Full code Discussed Condition With Patient with sister at bedside Dani Rosenthal Jan 29, 2017 10:08 Amandeep Aguilar MD Jan 29, 2017 14:11
[2017-01-29] MEDS ORDERED: PILL SPLITTER OTHER PRN (10:15)
[2017-01-29] MEDS: DOCUSATE SODIUM 50 MG/SENNA 8.6 MG TAB PO SCH ×2 (11:00→21:11)
[2017-01-29] MEDS ORDERED: DOCUSATE SODIUM 50 MG/SENNA 8.6 MG TAB PO SCH (11:00)
[2017-01-29 11:41] VITALS: BP 104/57; PULSE 82; RESP 16; O2SAT 97
[2017-01-29 12:17] LABS: HEMATOCRIT 30.3 % (35.0-46.0); REVIEW FLAG FINAL
[2017-01-29] MEDS: CARVEDILOL 12.5 MG TAB PO SCH ×2 (13:24→19:13)
--- NOTE | 2017-01-29 14:06 | MB ---
cc: NOHELIA GIBBONS MD DATE OF CONSULTATION: 01/29/2017. REASON FOR CONSULTATION: GI bleed HISTORY OF PRESENT ILLNESS: This is a 61-year-old female who underwent umbilical hernia repair by Dr. Hackett on January 19. She was given hydrocodone with acetaminophen for pain. She rarely takes NSAIDs and denies taking any recently. She does have a history of chronic gastroesophageal reflux disease for which she takes pantoprazole daily. She states she had an EGD and colonoscopy with the undersigned a little over a year ago and I will check those records. She states she was doing well until this morning when she woke up and passed a very dark black stool with some clots in it. She has not moved her bowels since then. Her admitting hemoglobin is similar to her baseline from a few weeks ago at 12.0; however, her renal function is worse with a BUN of 76 and creatinine 2.65. She is on Coumadin for atrial fibrillation and her INR is 1.8 with a PT of 20.1. She denies any abdominal pain or nausea. No vomiting. She denies any past history of ulcer or GI bleeding. PAST MEDICAL HISTORY: Her medical history is remarkable for: 1. Atrial fibrillation with congestive heart failure. 2. Hypertension. 3. Hyperlipidemia. 4. Gastroesophageal reflux disease (GERD). 5. Asthma. 6. Arthritis. PAST SURGICAL HISTORY: 1. Recent umbilical hernia repair January 19. 2. History of heart catheterization. MEDICATIONS AT HOME: 1. Carvedilol 25 milligrams three times a day. 2. Metolazone 2.5 milligrams daily. 3. Lasix 20 milligrams at bedtime. 4. Warfarin. 5. Vitamin D 2000 units daily. 6. She takes docusate stool softener daily. 7. A baby aspirin 81 milligrams daily. 8. Ventolin inhaler q. 4 hours PRN. 9. Amlodipine 5 milligrams daily in divided doses. 10. Lisinopril 20 milligrams twice a day. 11. Pantoprazole 40 milligrams daily. 12. Potassium chloride 10 milliequivalents twice a day. 13. Pravastatin 20 milligrams daily. ALLERGIES: NO KNOWN DRUG ALLERGIES. FAMILY HISTORY: Family history is remarkable for heart disease and a sister with colon cancer. SOCIAL HISTORY: No tobacco or alcohol history. REVIEW OF SYSTEMS: She denies any chest pain, shortness of breath, weight loss, abdominal pain, nausea or vomiting. PHYSICAL EXAMINATION:: GENERAL: Physical exam reveals a well-developed obese female in no acute distress. VITAL SIGNS: Her blood pressure is 120/80, pulse 88 and regular, respirations 60 nonlabored, temperature is 97.9 orally. HEAD, EYES, EARS, NOSE, THROAT: Sclerae anicteric. NECK: Supple without masses. LUNGS: Lungs were clear to percussion auscultation. HEART: Heart sounds are irregular without murmur, gallop or rub. ABDOMEN: Abdomen is obese, soft and nontender. No palpable masses. No organomegaly. RECTAL: Rectal was done earlier in the ED according to the patient and the ER physician documentation was that there was dark brown heme-positive stool present. IMPRESSION: GI bleed with dark heme-positive stool. Hemoglobin is at her baseline but she has a significant increase in her BUN and creatinine suggesting some prerenal azotemia. Hemoglobin will likely fall with rehydration and the dilutional effect. PLAN: 1. The patient is n.p.o. and has been started on IV fluids and IV Protonix. 2. Continue to monitor hemoglobin and hematocrit and transfuse as necessary. 3. Will arrange for upper endoscopy for diagnostic and possible therapeutic purposes which could be done with her current INR. I reviewed the risks, benefits, alternatives of EGD and informed consent was obtained. Further disposition will depend upon the findings. 4. Will also review her office records. We will follow with you. Thank you for this consult. MD KIERSTEN Junior/ADÁN /11:19 AM /1:56 PM
[2017-01-29 14:27] LABS: HEMATOCRIT 31.6 % (35.0-46.0)
[2017-01-29 16:13] VITALS: BP 98/53; PULSE 86; RESP 20; TEMP 97.4; O2SAT 95
--- NOTE | 2017-01-29 17:30 | HHI.GIFU ---
GI Follow-up Note Consult Follow-up Patient underwent EGD this afternoon which was entirely WNL except for a small hiatal hernia. Unable to complete report in [employer] system due to technical problems with new software update. No sign of an UGI bleed. Hgb fell from 12 to 10gm but repeat stable and no further BMs since this am. Will start clear liquids and monitor H&H. She had a negative EGD and a colonoscopy last January.The colonoscopy was remarkable for a small polyp and mild diverticulosis. Diverticular bleed? Small bowel source? Will follow. It was a pleasure seeing Tiera Kelley. Thank you for this consult. Entered by: Yrn Montalvo MD Jan 29, 2017 17:30
[2017-01-29] MEDS ORDERED: PROPOFOL 200 MG/20 ML AMP IV ONE (17:39)
[2017-01-29 20:00] VITALS: BP 111/59; PULSE 66; PULSE 74; RESP 18; TEMP 97.4; O2SAT 98
[2017-01-29] MEDS: CLOTRIMAZOLE 1% CREAM 15 GM TOPICAL SCH (21:00)
[2017-01-29] MEDS: DOCUSATE SODIUM 100 MG CAP PO SCH (21:11)
[2017-01-29] MEDS: amLODIPine BESYLATE 5 MG TAB PO SCH (21:11)
[2017-01-29] MEDS: SODIUM CHLORIDE 0.9% FLUSH 5 ML FLUSH FLUSH SCH (21:12)
[2017-01-30] VITALS (8 sets, daily range): BP systolic 80–120; BP diastolic 51–80; PULSE 68–92; RESP 18–20; TEMP 97–98; O2SAT 95–98
[2017-01-30] MEDS: ACETAMINOPHEN 325 MG TAB PO PRN (05:51)
[2017-01-30 07:48] LABS: AUTOMATED NEUTROPHIL # 4.2 TH/MM3 (1.8-7.7); BASOPHIL % 0.7 % (0.0-2.0); EOSINOPHIL # 0.3 TH/MM3 (0-0.4); EOSINOPHIL % 4.2 % (0.0-4.0); HEMATOCRIT 31.2 % (35.0-46.0); HEMO FLAGS DIFF FINAL; LYMPH % 17.4 % (9.0-44.0); LYMPHOCYTE # 1.1 TH/MM3 (1.0-4.8); MEAN CELL VOLUME 93.8 FL (80.0-100.0); MEAN CORPUSCULAR HEMOGLOBIN 31.9 PG (27.0-34.0); MEAN CORPUSCULAR HGB CONC 34.1 % (32.0-36.0); MONO % 9.6 % (0.0-8.0); NEUT % 68.1 % (16.0-70.0); PLATELET COUNT 211 TH/MM3 (150-450); RED BLOOD COUNT 3.33 MIL/MM3 (4.00-5.30); RED CELL DISTRIBUTION WIDTH 14.1 % (11.6-17.2); WHITE BLOOD COUNT 6.1 TH/MM3 (4.0-11.0)
[2017-01-30] MEDS: CARVEDILOL 12.5 MG TAB PO SCH (07:50)
[2017-01-30] MEDS: PRAVASTATIN SOD 20 MG TAB PO SCH (07:51)
[2017-01-30] MEDS: amLODIPine BESYLATE 5 MG TAB PO SCH (07:51)
[2017-01-30] MEDS: DOCUSATE SODIUM 50 MG/SENNA 8.6 MG TAB PO SCH ×2 (07:51→21:00)
[2017-01-30] MEDS: SODIUM CHLORIDE 0.9% FLUSH 5 ML FLUSH FLUSH SCH ×2 (07:52→22:18)
[2017-01-30 07:55] LABS: INTERNATIONAL NORMALIZED RATIO 1.9 RATIO; PROTHROMBIN TIME - PATIENT 21.7 SEC (9.8-11.6)
[2017-01-30] MEDS: CLOTRIMAZOLE 1% CREAM 15 GM TOPICAL SCH ×2 (07:56→21:00)
[2017-01-30 08:22] LABS: BICARBONATE 30.3 MEQ/L (21.0-32.0); POTASSIUM 4.1 MEQ/L (3.5-5.1)
[2017-01-30] MEDS: PANTOPRAZOLE SODIUM 40 MG VIAL IV PUSH SCH (10:00)
--- NOTE | 2017-01-30 10:51 | HHI.GIFU ---
GI Follow-up Note Consult Follow-up Subjective: Patient c/o nausea. She has had 2-3 BMs since admission with visible blood but none today so far. Objective: PHYSICAL EXAMINATION: Vitals signs stable No fever . ABDOMEN: Soft, nondistended, mild periumbilical tenderness but no rebound or guarding. Umbilicus looks OK. EXTREMITIES: No clubbing, cyanosis, or edema. SKIN: Normal; no rash; no jaundice. HOSPICE MUSIC THERAPIST: No focal deficits; alert and oriented times three. Available Data (labs, X- Rays, Procedues) : Hgb stable at 10.6. INR increased slightly to 1.9. BUN decreased to 46 with hydration. ASSESSMENT/PLAN: 1. GI bleed-EGD was negative. H&H stable. Had colonoscopy late January,. Does have sigmoid diverticulosis. I do not think she is bleeding enough to reverse her coumadin so can let it drift down naturally and if H&H stable in am consider d/c home with outpt colonoscopy later in the week. Discussed with Dr Aguilar. It was a pleasure seeing Tiera Kelley. Thank you for this consult. Entered by: Yrn Montalvo MD Jan 30, 2017 10:51
--- NOTE | 2017-01-30 11:45 | HHI.PR ---
Subjective Remarks Follow up for GI bleeding. The patient reports some nausea but no vomiting. Having mild pains at surgical sites. No BM overnight or today. No other medical complaints at this time. Objective Vitals Vital Signs Date Time Temp Pulse Resp B/P Pulse Ox O2 Delivery O2 Flow Rate FiO2 01/30/17 08:00 97.4 82 20 102/68 97 01/30/17 07:10 95 21 01/30/17 04:00 97.0 92 20 106/60 97 01/30/17 00:00 97.2 68 18 114/63 98 01/29/17 20:00 66 01/29/17 20:00 97.4 74 18 111/59 98 01/29/17 17:40 82 14 101/52 96 01/29/17 17:25 97.6 91 14 81/51 99 01/29/17 16:13 97.4 86 20 98/53 95 01/29/17 11:41 82 16 104/57 97 Room Air I/O 01/29/17 01/29/17 01/29/17 01/30/17 01/30/17 01/30/17 07:00 15:00 23:00 07:00 15:00 23:00 Intake Total 1294 ml 891 ml 999 ml Balance 1294 ml 891 ml 999 ml Intake Oral 620 ml 480 ml 600 ml IV Total 374 ml 411 ml 399 ml Other 300 ml # Voids 1 2 4 2 # Bowel Movements 1 1 1 Result Diagram: 01/30/1762201/30/17 0623 Objective Remarks GENERAL: Well-nourished, well-developed female patient in [facility]. SKIN: Warm and dry. No rash. HEENT: Normocephalic. Atraumatic.Pupils equal and round. No scleral icterus. No injection or drainage. Mucous membranes pink and moist. NECK: Supple. Trachea midline. CARDIOVASCULAR: Regular rate and rhythm. S1, S2 noted. No murmur appreciated. RESPIRATORY: No accessory muscle use. Clear to auscultation. Breath sounds equal bilaterally. GASTROINTESTINAL: Abdomen soft, nondistended, mild diffuse TTP, worse at surgical sites. Umbilicus clean. Normoactive bowel sounds x4. MUSCULOSKELETAL: No obvious deformities. Extremities without clubbing, cyanosis , or edema. NEUROLOGICAL: Awake and alert. No obvious cranial nerve deficits. Motor grossly within normal limits. Normal speech. PSYCHIATRIC: Appropriate mood and affect; insight and judgment normal. Procedures 01/29/17 - EGD unremarkable Medications and IVs Current Medications Medications (Trade) Dose Ordered Sig/Margarito Route Start Time Stop Time Status Last Admin (Proair Hfa Inh) 2 puff Q4H PRN INH 01/29/17 09:30 (Coreg) 12.5 mg TID PO 01/29/17 13:00 01/30/17 07:50 (Colace) 100 mg HS PO 01/29/17 21:00 01/29/17 21:11 Pravastatin Sodium 20 mg 20 mg DAILY PO 01/30/17 09:00 01/30/17 07:51 (NS 1000 ml Inj) 1,000 ml @ 70 mls/hr [id number] IV 01/29/17 10:00 01/29/17 10:07 (NS Flush) 2 ml UNSCH PRN FLUSH 01/29/17 09:30 (NS Flush) 2 ml BID FLUSH 01/29/17 21:00 01/30/17 07:52 (Tylenol) 650 mg Q4H PRN PO 01/29/17 09:30 (Zofran Inj) 4 mg Q6H PRN IVP 01/29/17 09:30 (Dulcolax Supp) 10 mg DAILY PRN VA 01/29/17 09:30 (Senokot) 17.2 mg Q12H PRN PO 01/29/17 09:30 (Tylenol) 650 mg Q6H PRN PO 01/29/17 09:30 01/30/17 05:51 (Narcan Inj) 0.4 mg UNSCH PRN IV 01/29/17 09:30 (Protonix Inj) 40 mg Q24H IV PUSH 01/30/17 10:00 (Lotrimin 1% Cream) 1 applic Q12HR TOPICAL 01/29/17 21:00 01/30/17 07:56 ([place] 5-325 Mg) 1 tab Q4H PRN PO 01/29/17 10:00 ([place] 7.5-325 Mg) 1 tab Q4H PRN PO 01/29/17 10:00 (Morphine Inj) 1 mg Q3H PRN IV 01/29/17 10:00 (Shonna-Colace) 2 tab BID PO 01/29/17 11:00 01/30/17 07:51 (Lactulose Liq) 30 ml TID PRN PO 01/29/17 10:00 (Norvasc) 2.5 mg BID PO 01/29/17 21:00 01/30/17 07:51 (Pill Splitter) 1 ea UNSCH PRN OTHER 01/29/17 10:15 Urinary Catheter: No A/P Assessment and Plan 61-year-old female with past medical history CHF, A. fib on anticoagulation, HTN , HLD, GERD, OA, asthma who presented for GI bleeding GI bleed: Hemoccult positive in the ED. On Coumadin with INR at 1.8, held. Hemoglobin 12.0, previously 11.5 on 01/20/17. Monitor H&H, transfuse if indicated. Clear liquids. Protonix. Gentle IVF with CHF. Stool softeners with constipation. Consult patient's life assurance representative. EGD done 01/29, unremarkable. Hgb with minimal decrease from 12 to 10.[address]. D[address] Dr. Garcia, continue to hold coumadin, no significant bleeding to reverse coumadin, if H&H stable in am, can likely d/c home, outpatient f/up for colonoscopy later this week. 1205hrs: Patient with episode of hypotension, SBP in 80s although asymptomatic. Give IVF bolus 250cc, hold BP meds. Monitor. Alert GI if any active bleeding. Discussed with RN. RUBY on CKD: Creatinine 2.65, previously 1.53 on 01/20/17. Secondary to anemia vs overdiuresis. Held home diuretics. Cautious IVF. Monitor volume status, I&O. Repeat BMP with improvement, Cr 1.56 today. Recheck tomorrow. Atrial fibrillation on anticoagulation: On Coumadin at home, held with bleeding as above. INR subtherapeutic at 1.9, monitor INR. Continue carvedilol for rate control. Likely no need for aspirin and Coumadin especially with GI bleeding, discontinued aspirin. Monitor on telemetry. Chronic systolic CHF: EF 20% on cardiac catheterization last year. Patient refused AICD. Hold diuretics and lisinopril with RUBY. Continue carvedilol. S/P recent umbilical hernia repair: D/W Dr. Caballero, covering for Dr. Hackett. DVT prophylaxis: Coumadin as above. SCDs. Written by Anitha Harper, acting as scribe for Dr. Aguilar on 01/30/17 at 10: 40. All or portions of this note were transcribed by scribe []. I, Dr. Amandeep Aguilar personally performed the history, physical exam, and medical decision making; and confirmed the accuracy of the information in the transcribed note. Authenticated by Dr. Amandeep Aguilar on 01/30/17 at 16:04. Discharge Planning Possible d/c tomorrow if Hgb stable. Anitha Harper PA-C Jan 30, 2017 11:45 Amandeep Aguilar MD Jan 30, 2017 16:04
[2017-01-30] MEDS ORDERED: SODIUM CHLOR 0.9% 250 ML INJ 250 ML IV ONE (12:00)
[2017-01-30 12:11] LABS: HEMATOCRIT 35.6 % (35.0-46.0); REVIEW FLAG FINAL
[2017-01-30] MEDS: ONDANSETRON HCL 4 MG/2 ML VIAL IVP PRN (13:48)
[2017-01-30] MEDS: DOCUSATE SODIUM 100 MG CAP PO SCH (21:00)
[2017-01-30] MEDS ORDERED: CARVEDILOL 12.5 MG TAB PO SCH (21:00)
[2017-01-31] VITALS (8 sets, daily range): BP systolic 87–117; BP diastolic 64–75; PULSE 77–116; RESP 20–22; TEMP 96.3–99.3; O2SAT 95–99
[2017-01-31] MEDS: SODIUM CHLOR 0.9% 1000 ML INJ 1,000 ML IV SCH ×2 (04:54→16:23)
[2017-01-31 07:01] LABS: AUTOMATED NEUTROPHIL # 2.8 TH/MM3 (1.8-7.7); BASOPHIL # 0.1 TH/MM3 (0-0.2); BASOPHIL % 1.2 % (0.0-2.0); EOSINOPHIL # 0.3 TH/MM3 (0-0.4); EOSINOPHIL % 6.8 % (0.0-4.0); HEMO FLAGS DIFF FINAL; LYMPH % 26.3 % (9.0-44.0); LYMPHOCYTE # 1.4 TH/MM3 (1.0-4.8); MEAN CELL VOLUME 93.7 FL (80.0-100.0); MEAN CORPUSCULAR HEMOGLOBIN 32.5 PG (27.0-34.0); MEAN CORPUSCULAR HGB CONC 34.7 % (32.0-36.0); MONO % 12.1 % (0.0-8.0); NEUT % 53.6 % (16.0-70.0); PLATELET COUNT 203 TH/MM3 (150-450); RED BLOOD COUNT 3.41 MIL/MM3 (4.00-5.30); RED CELL DISTRIBUTION WIDTH 13.9 % (11.6-17.2); WHITE BLOOD COUNT 5.1 TH/MM3 (4.0-11.0)
[2017-01-31 07:07] LABS: INTERNATIONAL NORMALIZED RATIO 1.8 RATIO; PROTHROMBIN TIME - PATIENT 20.5 SEC (9.8-11.6)
[2017-01-31 07:32] LABS: BICARBONATE 29.8 MEQ/L (21.0-32.0); POTASSIUM 3.9 MEQ/L (3.5-5.1)
[2017-01-31] MEDS: SODIUM CHLORIDE 0.9% FLUSH 5 ML FLUSH FLUSH SCH ×2 (08:16→20:43)
[2017-01-31] MEDS: DOCUSATE SODIUM 50 MG/SENNA 8.6 MG TAB PO SCH ×3 (08:18→20:42)
[2017-01-31] MEDS: PRAVASTATIN SOD 20 MG TAB PO SCH (08:18)
[2017-01-31] MEDS: CLOTRIMAZOLE 1% CREAM 15 GM TOPICAL SCH ×3 (08:19→20:43)
[2017-01-31] MEDS: PANTOPRAZOLE SODIUM 40 MG VIAL IV PUSH SCH (09:47)
--- NOTE | 2017-01-31 10:37 | HHI.GIFU ---
GI Follow-up Note Consult Follow-up Subjective: Patient laying in bed comfortably, no new complaints and no further rectal bleeding. Nausea better. Objective: PHYSICAL EXAMINATION: Vitals signs stable No fever CHEST: Chest is clear to auscultation and percussion. CARDIAC: Irregular rate and rhythm with no murmur gallop or rubs. ABDOMEN: Soft, nondistended, nontender. EXTREMITIES: No clubbing, cyanosis, or edema. SKIN: Normal; no rash; no jaundice. HEALTH WORKERS: No focal deficits; alert and oriented times three. Available Data (labs, X- Rays, Procedues) : H&H improved. INR still 1.8 (coumadin on hold) ASSESSMENT/PLAN: 1. GI [id number] was neg. Patient prefers to get colonoscopy done as inpt. Will prep today for colonoscopy tomorrow. Should be ok to discharge home after colonoscopy. R,B ,A discussed, informed consent obtained. It was a pleasure seeing Tiera Kelley. Thank you for this consult. Entered by: Yrn Montalvo MD Jan 31, 2017 10:37
--- NOTE | 2017-01-31 14:39 | HHI.PR ---
Subjective Remarks Follow up for GI bleeding. The patient reports no further episodes of bleeding overnight. Denies nausea/vomiting. Continues to only have abdominal pain at the incision sites. Plan for colonoscopy tomorrow. Objective Vitals Vital Signs Date Time Temp Pulse Resp B/P Pulse Ox O2 Delivery O2 Flow Rate FiO2 01/31/17 11:55 99.3 78 20 98/64 97 01/31/17 08:00 88 01/31/17 07:54 98.5 77 20 95/66 98 01/31/17 04:00 96.3 116 22 87/68 97 01/31/17 00:00 98.0 90 20 117/74 99 01/30/17 20:25 21 01/30/17 16:00 98.0 85 18 80/59 98 01/30/17 14:43 15 I/O 01/30/17 01/30/17 01/30/17 01/31/17 01/31/17 01/31/17 07:00 15:00 23:00 07:00 15:00 23:00 Intake Total 891 ml 1239 ml 480 ml Output Total 950 ml Balance 891 ml 1239 ml -950 ml 480 ml Intake Oral 480 ml 840 ml 480 ml IV Total 411 ml 399 ml Output Urine Total 950 ml # Voids 4 5 2 # Bowel Movements 1 4 1 1 Result Diagram: 01/31/1760201/31/17 06 Objective Remarks GENERAL: Well-nourished, well-developed female patient in [facility]. SKIN: Warm and dry. No rash. HEENT: Normocephalic. Atraumatic.Pupils equal and round. No scleral icterus. No injection or drainage. Mucous membranes pink and moist. NECK: Supple. Trachea midline. CARDIOVASCULAR: Regular rate and rhythm. S1, S2 noted. No murmur appreciated. RESPIRATORY: No accessory muscle use. Clear to auscultation. Breath sounds equal bilaterally. GASTROINTESTINAL: Abdomen soft, nondistended, mild diffuse TTP, mostly at surgical sites. Normoactive bowel sounds x4. MUSCULOSKELETAL: No obvious deformities. Extremities without clubbing, cyanosis , or edema. NEUROLOGICAL: Awake and alert. No obvious cranial nerve deficits. Motor grossly within normal limits. Normal speech. PSYCHIATRIC: Appropriate mood and affect; insight and judgment normal. Procedures 01/29/17 - EGD unremarkable Medications and IVs Current Medications Medications (Trade) Dose Ordered Sig/Margarito Route Start Time Stop Time Status Last Admin (Proair Hfa Inh) 2 puff Q4H PRN INH 01/29/17 09:30 (Colace) 100 mg HS PO 01/29/17 21:00 01/29/17 21:11 Pravastatin Sodium 20 mg 20 mg DAILY PO 01/30/17 09:00 01/31/17 08:18 (NS 1000 ml Inj) 1,000 ml @ 70 mls/hr [id number] IV 01/29/17 10:00 01/31/17 04:54 (NS Flush) 2 ml UNSCH PRN FLUSH 01/29/17 09:30 (NS Flush) 2 ml BID FLUSH 01/29/17 21:00 01/31/17 08:16 (Tylenol) 650 mg Q4H PRN PO 01/29/17 09:30 01/30/17 13:43 (Zofran Inj) 4 mg Q6H PRN IVP 01/29/17 09:30 01/30/17 13:48 (Dulcolax Supp) 10 mg DAILY PRN IA 01/29/17 09:30 (Senokot) 17.2 mg Q12H PRN PO 01/29/17 09:30 (Tylenol) 650 mg Q6H PRN PO 01/29/17 09:30 01/30/17 05:51 (Narcan Inj) 0.4 mg UNSCH PRN IV 01/29/17 09:30 (Protonix Inj) 40 mg Q24H IV PUSH 01/30/17 10:00 01/31/17 09:47 (Lotrimin 1% Cream) 1 applic Q12HR TOPICAL 01/29/17 21:00 01/31/17 10:02 (Chester 5-325 Mg) 1 tab Q4H PRN PO 01/29/17 10:00 (Chester 7.5-325 Mg) 1 tab Q4H PRN PO 01/29/17 10:00 (Morphine Inj) 1 mg Q3H PRN IV 01/29/17 10:00 (Shonna-Colace) 2 tab BID PO 01/29/17 11:00 01/31/17 09:46 (Lactulose Liq) 30 ml TID PRN PO 01/29/17 10:00 (Pill Splitter) 1 ea UNSCH PRN OTHER 01/29/17 10:15 (Coreg) 12.5 mg BID PO 01/30/17 21:00 Hold 01/30/17 22:15 (Colyte Liq) 4,000 ml ONCE ONCE PO 01/31/17 18:00 01/31/17 18:01 A/P Assessment and Plan 61-year-old female with past medical history CHF, A. fib on anticoagulation, HTN , HLD, GERD, OA, asthma who presented for GI bleeding GI bleed: Hemoccult positive in the ED. On Coumadin with INR at 1.8, held. Hemoglobin 12.0, previously 11.5 on 01/20/17. Monitor H&H, transfuse if indicated. Protonix. Gentle IVF with CHF. Stool softeners with constipation. Consult patient's hotbed operator. EGD done 01/29, unremarkable. Hgb with minimal decrease from 12 [address] Garcia, continue to hold coumadin, no significant bleeding to reverse coumadin. Planning for colonoscopy tomorrow 02/01. Bowel prep tonight. Clear liquids. Hypotension: Patient with episode of hypotension 01/30, SBP in 80s although asymptomatic. Give IVF bolus 250cc, hold BP meds. Continue to Monitor. Still hypotensive today although improved. RUBY on CKD: Creatinine 2.65, previously 1.53 on 01/20/17. Secondary to anemia vs overdiuresis. Held home diuretics. Cautious IVF. Monitor volume status, I&O. Repeat BMP with improvement, Cr 1.32 today. Continue to monitor. Atrial fibrillation on anticoagulation: On Coumadin at home, held with bleeding as above. INR subtherapeutic at 1.9, monitor INR. Continue carvedilol for rate control. Likely no need for aspirin and Coumadin especially with GI bleeding, discontinued aspirin. Monitor on telemetry. Chronic systolic CHF: EF 20% on cardiac catheterization last year. Patient refused AICD. Hold diuretics and lisinopril with RUBY. Continue carvedilol. S/P recent umbilical hernia repair: D/W Dr. Caballero, covering for Dr. Hackett. DVT prophylaxis: Coumadin as above. SCDs. Written by Anitha Harper, acting as scribe for Dr. Aguilar on 01/31/17 at 1410hrs. All or portions of this note were transcribed by scribe []. I, Dr. Amandeep Aguilar personally performed the history, physical exam, and medical decision making; and confirmed the accuracy of the information in the transcribed note. Authenticated by Dr. Amandeep Aguilar on 01/31/17 at 16:47. Discharge Planning Possible d/c tomorrow after colonoscopy. Anitha Harper PA-C Jan 31, 2017 14:39 Amandeep Aguilar MD Jan 31, 2017 16:47
[2017-01-31] MEDS ORDERED: PEG (High)/E-LYTE SOLN 4000 ML BTL PO ONE (18:00)
[2017-01-31] MEDS: ONDANSETRON HCL 4 MG/2 ML VIAL IVP PRN (18:10)
[2017-01-31] MEDS: DOCUSATE SODIUM 100 MG CAP PO SCH (20:42)
[2017-01-31] MEDS: ACETAMINOPHEN 325 MG TAB PO PRN (23:42)
[2017-02-01 00:54] VITALS: BP 118/73; PULSE 104; RESP 22; TEMP 97.6; O2SAT 96
[2017-02-01 04:09] VITALS: BP 104/68; PULSE 100; RESP 22; TEMP 97.2; O2SAT 96
[2017-02-01 05:12] VITALS: PULSE 94
[2017-02-01] MEDS: DOCUSATE SODIUM 50 MG/SENNA 8.6 MG TAB PO SCH (07:46)
[2017-02-01] MEDS: CLOTRIMAZOLE 1% CREAM 15 GM TOPICAL SCH (07:48)
[2017-02-01] MEDS: PRAVASTATIN SOD 20 MG TAB PO SCH (07:48)
[2017-02-01] MEDS: SODIUM CHLOR 0.9% 1000 ML INJ 1,000 ML IV SCH (07:49)
[2017-02-01] MEDS: SODIUM CHLORIDE 0.9% FLUSH 5 ML FLUSH FLUSH SCH (07:51)
[2017-02-01 08:00] VITALS: BP 105/62; PULSE 96; RESP 20; TEMP 98; O2SAT 99
[2017-02-01 09:19] LABS: INTERNATIONAL NORMALIZED RATIO 1.5 RATIO
[2017-02-01 09:21] LABS: AUTOMATED NEUTROPHIL # 5.1 TH/MM3 (1.8-7.7); BASOPHIL # 0.1 TH/MM3 (0-0.2); BASOPHIL % 0.8 % (0.0-2.0); EOSINOPHIL # 0.4 TH/MM3 (0-0.4); EOSINOPHIL % 4.7 % (0.0-4.0); HEMO FLAGS DIFF FINAL; LYMPH % 23.8 % (9.0-44.0); MEAN CELL VOLUME 93.8 FL (80.0-100.0); MEAN CORPUSCULAR HEMOGLOBIN 32.7 PG (27.0-34.0); MEAN CORPUSCULAR HGB CONC 34.9 % (32.0-36.0); MONO % 9.3 % (0.0-8.0); NEUT % 61.4 % (16.0-70.0); PLATELET COUNT 241 TH/MM3 (150-450); RED BLOOD COUNT 3.62 MIL/MM3 (4.00-5.30); WHITE BLOOD COUNT 8.3 TH/MM3 (4.0-11.0)
[2017-02-01] MEDS: PANTOPRAZOLE SODIUM 40 MG VIAL IV PUSH SCH (09:34)
--- NOTE | 2017-02-01 09:35 | HHI.GIFU ---
GI Follow-up Note Consult Follow-up Subjective: Patient could not tolerate bowel prep and refused to continue with colonoscopy. No further bleeding and Hgb up to 11.9. Objective: PHYSICAL EXAMINATION: Vitals signs stable No fever ABDOMEN: Soft, nondistended, nontender SKIN: warm and dry [employer]OD EDUCATION INSTRUCTOR: alert and oriented times three. Available Data (labs, X- Rays, Procedues) : ASSESSMENT/PLAN: 1. GI bleeding-appears inactive. OK to continue coumadin and discharge home. Colonoscopy was done January, but will have pt f/u in my office to see if she wants to repeat it as an outpt. Will sign off. It was a pleasure seeing Tiera Kelley. Thank you for this consult. Entered by: Yrn Montalvo MD Feb 01, 2017 09:35
[2017-02-01 09:46] LABS: BICARBONATE 26.6 MEQ/L (21.0-32.0); MAGNESIUM 1.9 MG/DL (1.5-2.5); POTASSIUM 3.8 MEQ/L (3.5-5.1)
[2017-02-01 12:00] VITALS: BP 114/74; PULSE 95; RESP 18; TEMP 99.1; O2SAT 95
[2017-02-01] MEDS ORDERED: SENN1TAB PO (12:24)
[2017-02-01] MEDS ORDERED: CARV3.125 PO (12:25)
--- NOTE | 2017-02-01 12:45 | HHI.DS ---
Discharge Summary Admission Date Jan 29, 2017 at 09:55 Discharge Date: Feb 01, 2017 Admitting Diagnosis GI bleed/on Coumadin (1) RUBY (acute kidney injury) ICD Code: N17.9 Diagnosis: Secondary (2) Afib ICD Code: I48.91 Diagnosis: Secondary (3) GI bleed ICD Code: K92.2 Diagnosis: Principal (4) HTN (hypertension) ICD Code: I10 Diagnosis: Secondary (5) Cardiomyopathy ICD Code: I42.9 Diagnosis: Secondary (6) GERD (gastroesophageal reflux disease) ICD Code: K21.9 Diagnosis: Secondary Procedures 01/29/17 - EGD unremarkable Brief History - From Admission 61-year-old female with past medical history CHF, A. fib on anticoagulation, HTN , HLD, GERD, OA, asthma who presented for GI bleeding. The patient had a recent umbilical hernia repair with Dr. Hackett. She has been dealing with constipation since then. She states that last night she began having dark stools. She states that the toilet bowl was full of black stool. She denies any bright red stool. Per ED report, patient had maroon Hemoccult-positive stool. The patient is having abdominal soreness since the surgery, denies any acute worsening. She states that this morning she was feeling a little dizzy and lightheaded. She denies any weakness or chest pain. She does take an aspirin every day, denies any other NSAID use. She reports normal urine output. She had a screening colonoscopy [address] Garcia. CBC/BMP: 02/01/17 0803 02/01/17 0803 Significant Findings Laboratory Tests Test 01/29/17 01/30/17 01/31/17 02/01/17 14:13 06:23 06:03 08:03 Hemoglobin 10.8 GM/DL 10.6 GM/DL 11.1 GM/DL (11.6-15.3) (11.6-15.3) (11.6-15.3) Hematocrit 31.6 % 31.2 % 32.0 % 34.0 % (35.0-46.0) (35.0-46.0) (35.0-46.0) (35.0-46.0) Red Blood Count 3.33 MIL/MM3 3.41 MIL/MM3 3.62 MIL/MM3 (4.00-5.30) (4.00-5.30) (4.00-5.30) Monocytes (%) (Auto) 9.6 % (0.0-8.0) 12.1 % 9.3 % (0.0-8.0) (0.0-8.0) Eosinophils (%) (Auto) 4.2 % (0.0-4.0) 6.8 % (0.0-4.0) 4.7 % (0.0-4.0) Prothrombin Time 21.7 SEC 20.5 SEC 17.0 SEC (9.8-11.6) (9.8-11.6) (9.8-11.6) Blood Urea Nitrogen 46 MG/DL (7-18) 28 MG/DL (7-18) Creatinine 1.56 MG/DL 1.32 MG/DL 1.39 MG/DL (0.50-1.00) (0.50-1.00) (0.50-1.00) Estimat Glomerular Filtration 34 ML/MIN (>89) 41 ML/MIN (>89) 39 ML/MIN (>89) Rate PE at Discharge GENERAL: Well-nourished, well-developed female patient in [facility]. SKIN: Warm and dry. No rash. HEENT: Normocephalic. Atraumatic.Pupils equal and round. No scleral icterus. No injection or drainage. Mucous membranes pink and moist. NECK: Supple. Trachea midline. CARDIOVASCULAR: Regular rate and rhythm. S1, S2 noted. No murmur appreciated. RESPIRATORY: No accessory muscle use. Clear to auscultation. Breath sounds equal bilaterally. GASTROINTESTINAL: Abdomen soft, nondistended, mild tenderness at surgical sites. Normoactive bowel sounds x4. MUSCULOSKELETAL: No obvious deformities. Extremities without clubbing, cyanosis , or edema. NEUROLOGICAL: Awake and alert. No obvious cranial nerve deficits. Motor grossly within normal limits. Normal speech. PSYCHIATRIC: Appropriate mood and affect; insight and judgment normal. Pt update on day of discharge Follow-up for GI bleeding. No further bleeding. The patient had vomiting when she tried to do bowel prep last night. Wants to hold off with colonoscopy for now and follow up with GI to discuss it further. Hospital Course 61-year-old female with past medical history CHF, A. fib on anticoagulation, HTN , HLD, GERD, OA, asthma who presented for GI bleeding GI bleed: Hemoccult positive in the ED. On Coumadin with INR at 1.8, held. Hemoglobin 12.0, previously 11.5 on 01/20/17. Monitor H&H, transfuse if indicated. Protonix. Gentle IVF with CHF. Stool softeners with constipation. Consulted patient's silviculturist Dr. Garcia. EGD done 01/29, unremarkable. Hgb stable at 11.9 at [place]. To follow up as outpatient with GI to discuss colonoscopy. Hypotension: BP has remained soft during admission. Given gentle IVF. Held BP meds, reintroducing is tolerated, just low-dose carvedilol for now, follow up with PCP. RUBY on CKD: Creatinine 2.65, previously 1.53 on 01/20/17. Secondary to anemia vs overdiuresis. Held home diuretics. Creatinine improved with cautious IVF. Reintroduce diuretics as tolerated, Lasix daily for now. Atrial fibrillation on anticoagulation: On Coumadin at home, held with bleeding as above. INR subtherapeutic. Continue carvedilol for rate control. Likely no need for aspirin and Coumadin especially with GI bleeding, discontinued aspirin. Per GI hold coumadin for now , pt aware risk of CVA Chronic systolic CHF: EF 20% on cardiac catheterization last year. Patient refused AICD. Held diuretics and lisinopril with RUBY. Continue carvedilol. S/P recent umbilical hernia repair: Continue postop follow-up with Dr. Hackett. Pt Condition on Discharge: Stable Discharge Disposition: Discharge Home Discharge Time: > 30 minutes Discharge Instructions DIET: Follow Instructions for: Heart Healthy Diet Activities you can perform: Regular-No Restrictions Follow up Referrals: Gastroenterology - 10 Days with Yrn Garcia MD PCP Follow-up - 2-3 Days with Domonique New Medications: Carvedilol (Coreg) 3.125 Mg Tab 3.125 MG PO Q12HR Blood Pressure Management #60 TAB Sennosides-Docusate Sodium (Senna Plus 8.6-50 mg) 1 Tab Tab 2 TAB PO BID Constipation #20 TAB Continued Medications: Albuterol 18 GM Inh (Ventolin Hfa 18 GM Inh) 90 Mcg/Act Aer 1-2 PUFF INH Q4H PRN SHORTNESS OF BREATH #1 Ref 0 INHALER Amlodipine (Amlodipine) 5 Mg Tab 2.5 MG PO BID Blood Pressure Management #30 Ref 0 TAB Cholecalciferol (Vitamin D) 2,000 Unit Tab 2000 UNITS PO DAILY Furosemide (Lasix) 40 Mg Tab 40 MG PO DAILY #60 Ref 0 TAB Pantoprazole (Pantoprazole) 40 Mg Tab 40 MG PO DAILY Reflux #30 Ref 0 TAB Potassium Chloride ER (Potassium Chloride ER) 10 Meq Tab 10 MEQ PO BID Electrolyte Replacement #60 Ref 0 TAB Pravastatin (Pravastatin) 20 Mg Tab 20 MG PO DAILY Cholesterol Management #30 Ref 0 TAB Discontinued Medications: Aspirin DR (Aspirin 81) 81 Mg Tabdr 81 MG PO DAILY Ref 0 TAB Carvedilol (Carvedilol) 25 Mg Tab 25 MG PO TID #60 Ref 1 TAB Docusate Sodium (Stool Softener) 100 Mg Cap 100 MG PO HS Furosemide (Furosemide) 20 Mg Tab 20 MG PO HS #30 Ref 0 TAB Lisinopril (Lisinopril) 20 Mg Tab 20 MG PO BID #30 Ref 0 TAB Metolazone (Metolazone) 2.5 Mg Tab 2.5 MG PO DAILY #30 Ref 0 TAB Warfarin (Warfarin) 4 Mg Tab 8 MG PO T,W,TH Blood Clot Prevention #30 Ref 0 TAB Warfarin (Warfarin) 10 Mg Tab 7 MG PO WED Blood Clot Prevention #30 Ref 0 TAB Additional Information Written by Dani Rosenthal, acting as scribe for Dr. Aguilar on 02/01/17 at 12:41. Dani Rosenthal Feb 01, 2017 12:45 Amandeep Aguilar MD Feb 01, 2017 16:43
[2017-02-01] MEDS ORDERED: CARVEDILOL 3.125 MG TAB PO SCH (13:00)
--- NOTE | 2017-02-01 14:50 | EKG ---
Date Performed: 01/31/2017 Time Performed: 18:32:26 PTAGE: 61 years EKG: ATRIAL FIBRILLATION WITH RAPID VENTRICULAR RESPONSE WITH ABERRANT CONDUCTION OR VENTRICULAR PREMATURE COMPLEXES MARKED RIGHT AXIS DEVIATION INTRAVENTRICULAR CONDUCTION DELAY LATERAL MYOCARDIAL INFARCTION , OF INDETERMINATE AGE ABNORMAL ECG Compared to PREVIOUS TRACING the ventriuclar rate to atrial fibrillation has increased. PREVIOUS TRA CIN01/19/2017 11.20 DOCTOR: Bill Urena Interpretating Date/Time 02/01/2017 14:46:54
[2017-02-01] MEDS ORDERED: WARFARIN SOD 7.5 MG TAB PO SCH (16:00)
== END 2017-02-01 14:29 | disposition home or self-care (01) | DRG 378 ==
LOC: NEPC 07:20 → NEDA 09:31 → OBSVTOIN 09:55 → N05A 14:21
PROVIDERS: ADMIT Internal Medicine; ATTEND Internal Medicine
PROC: 0DJ08ZZ Inspection of Upper Intestinal Tract, Via Natural or Artificial Opening Endoscopic (ICD-10-PCS; principal; 2017-01-29 16:40)
DX: K92.2 Gastrointestinal hemorrhage, unspecified (principal); N17.9 Acute kidney failure, unspecified; I42.9 Cardiomyopathy, unspecified; I50.22 Chronic systolic (congestive) heart failure; I95.9 Hypotension, unspecified; Z68.41 Body mass index [BMI] 40.0-44.9, adult; I48.91 Unspecified atrial fibrillation; Z79.01 Long term (current) use of anticoagulants; K21.9 Gastro-esophageal reflux disease without esophagitis; N18.9 Chronic kidney disease, unspecified; I12.9 Hypertensive chronic kidney disease with stage 1 through stage 4 chronic kidney disease, or unspecified chronic kidney disease; M19.90 Unspecified osteoarthritis, unspecified site; Z79.82 Long term (current) use of aspirin; Z98.890 Other specified postprocedural states; E78.5 Hyperlipidemia, unspecified; J45.909 Unspecified asthma, uncomplicated; E66.9 Obesity, unspecified; K44.9 Diaphragmatic hernia without obstruction or gangrene
CPT/HCPCS: 76937; 80048; 83735; 85014; 85018; 85025; 85610; 85730; 93005; 99285; C9113; J2405; J7030; J7050